=== PATIENT | male | born 1980 | race Caucasian/White ===

== ENCOUNTER 2022-06-16 15:51 | Emergency (ER) | payer MEDICAID ==
[2022-06-16] MEDS ORDERED: Sodium Chloride 0.9% 10 ML Syringe FLUSH PRN (16:23)
[2022-06-16] MEDS ORDERED: OLANZapine 5 MG Tab PO ONE (16:25)
[2022-06-16] MEDS ORDERED: Sodium Chloride 0.9% 1,000 ML IV SCH (16:30)
[2022-06-16 17:32] LABS: ESTIMATED GFR 86 mL/min (>60)
[2022-06-16 17:34] LABS: ACETAMINOPHEN 0 ug/mL (10-30)
[2022-06-16 17:34] LABS: CORONAVIRUS COVID-19 NAA NEGATIVE (NEGATIVE)
== END 2022-06-16 18:50 | disposition home or self-care (01) ==
LOC: JD.ED 15:51 → EDBD 15:51 → JD.ED 18:50
DX: F30.2 Manic episode, severe with psychotic symptoms (principal); F17.210 Nicotine dependence, cigarettes, uncomplicated; Z20.822 Contact with and (suspected) exposure to COVID-19; Z79.899 Other long term (current) drug therapy
CPT/HCPCS: 0241U; 36415; 71045; 80053; 80143; 80179; 80307; 83605; 84443; 85025; 86140; 87040; 96360; 96361; 99285; A9270; J3490; J7030; 99284